=== PATIENT | female | born 1990 | race Caucasian/White ===

== ENCOUNTER 2020-10-10 08:34 | Inpatient (IN) | payer MEDICAID ==
[~2020-10-10] VITALS: Ht 160 cm; Wt 100.0 kg
[2020-10-10] MEDS ORDERED: LACTATED RINGERS 1,000 ML IVBOLUS ONE (10:30)
[2020-10-10] MEDS ORDERED: CALCIUM CARBONATE 500 MG TAB.CHEW PO PRN (10:30)
[2020-10-10] MEDS ORDERED: LACTATED RINGERS 1,000 ML IV SCH ×2 (10:30→13:30)
[2020-10-10] MEDS ORDERED: METOCLOPRAMIDE 5 MG/ML, 2ML IV ONE (10:30)
[2020-10-10 10:43] VITALS: BP 131/79
[2020-10-10 10:59] LABS: BASOPHILS % (AUTO) 0 % (0-1); EOSINOPHILS % (AUTO) 0 % (1-7); LYMPHOCYTES % (AUTO) 17 % (22-44); MEAN CORPUSCULAR HEMOGLOBIN 27.6 pg (27.0-34.8); MEAN CORPUSCULAR HGB CONC 33.3 g/dL (32.4-35.8); MEAN PLATELET VOLUME 8.3 fL (7.4-10.4); MONOCYTES % (AUTO) 7 % (2-9); NEUTROPHILS % (AUTO) 75 % (42-75); PLATELET COUNT 247 x10^3/uL (130-400); RED BLOOD COUNT 4.03 x10^6/uL (3.82-5.3); RED CELL DISTRIBUTION WIDTH 14.6 % (9.6-15.2)
[2020-10-10 11:00] LABS: MD NO
[2020-10-10] MEDS ORDERED: METOCLOPRAMIDE 5 MG/ML, 2ML ONE (11:16)
[2020-10-10] MEDS ORDERED: NEWBORN KIT ONE (11:16)
[2020-10-10] MEDS ORDERED: OXYTOCIN 30U/ 0.9% NaCL 500ML 500 ML ONE (11:16)
[2020-10-10] MEDS ORDERED: SODIUM CITRATE/CITRIC ACID 15 ML UDC ONE (11:17)
[2020-10-10] MEDS ORDERED: CEFAZOLIN 1,000 MG ONE (11:24)
[2020-10-10] MEDS ORDERED: EPHEDRINE 50 MG/ML, 1ML ONE (11:24)
[2020-10-10] MEDS ORDERED: EPINEPHRINE 1 MG/ML, 1ML ONE (11:24)
[2020-10-10] MEDS ORDERED: FENTANYL PF 100 MCG/2ML ONE (11:24)
[2020-10-10] MEDS ORDERED: OXYTOCIN 10 UNITS/ML, 1ML ONE (11:24)
[2020-10-10] MEDS ORDERED: EPHEDRINE 50 MG/ML, 1ML IVPush PRN (12:00)
[2020-10-10] MEDS ORDERED: FENTANYL PF 100 MCG/2ML IV PRN (12:00)
[2020-10-10] MEDS ORDERED: ONDANSETRON 2MG/ML, 2ML IVPush PRN (12:00)
[2020-10-10] MEDS ORDERED: morphine SULFATE 10 MG/ML, 1ML IVPush PRN (12:00)
[2020-10-10] MEDS ORDERED: OXYcodone 5 MG/5 ML ORAL.SOL UDC PO PRN (12:00)
[2020-10-10] MEDS ORDERED: MEPERIDINE/PF 25MG/0.5ML IVPush PRN (12:00)
[2020-10-10] MEDS ORDERED: KETOROLAC 30 MG/1 ML ONE (12:54)
[2020-10-10] MEDS ORDERED: ACETAMINOPHEN 325 MG TABLET PO PRN (13:30)
[2020-10-10] MEDS ORDERED: MISOPROSTOL 200 MCG TABLET PR PRN (13:30)
[2020-10-10] MEDS ORDERED: ONDANSETRON 2MG/ML, 2ML IV PRN (13:30)
[2020-10-10] MEDS: LACTATED RINGERS 1,000 ML IV SCH ×2 (13:56→23:30)
[2020-10-10] MEDS: OXYTOCIN 30U/ 0.9% NaCL 500ML 500 ML IV SCH ×2 (13:57→23:30)
[2020-10-10 15:30] VITALS: BP 129/81
[2020-10-10] MEDS: SIMETHICONE 80 MG CHEW TAB PO PRN (15:34)
[2020-10-10] MEDS: OXYcodone IR 5MG TABLET PO PRN ×2 (15:43→19:27)
[2020-10-10] MEDS: KETOROLAC 30 MG/1 ML IV SCH ×2 (19:20→19:30)
[2020-10-10] MEDS: DOCUSATE 100 MG CAPSULE PO PRN (19:27)
[2020-10-10 21:12] LABS: BASOPHILS % (AUTO) 1 % (0-1); EOSINOPHILS % (AUTO) 0 % (1-7); LYMPHOCYTES % (AUTO) 16 % (22-44); MD NO; MEAN CORPUSCULAR HEMOGLOBIN 27.3 pg (27.0-34.8); MEAN CORPUSCULAR HGB CONC 33.4 g/dL (32.4-35.8); MEAN PLATELET VOLUME 8.3 fL (7.4-10.4); MONOCYTES % (AUTO) 8 % (2-9); NEUTROPHILS % (AUTO) 76 % (42-75); PLATELET COUNT 208 x10^3/uL (130-400); RED BLOOD COUNT 3.57 x10^6/uL (3.82-5.3); RED CELL DISTRIBUTION WIDTH 14.4 % (9.6-15.2)
[2020-10-10] MEDS ORDERED: RHOGAM FROM BLOOD BANK 1 NOTE EA IM/IV ONE (22:30)
[2020-10-11] VITALS: BP 122/79
[2020-10-11] MEDS: KETOROLAC 30 MG/1 ML IV SCH ×4 (01:04→19:35)
[2020-10-11] MEDS: OXYcodone IR 5MG TABLET PO PRN ×2 (01:06→06:12)
[2020-10-11 04:00] VITALS: BP 135/85
[2020-10-11 07:05] VITALS: BP 119/83
[2020-10-11] MEDS: PRENATAL VIT/IRON/FA 1 EACH TABLET PO SCH (07:05)
[2020-10-11] MEDS: DOCUSATE 100 MG CAPSULE PO PRN ×2 (07:05→19:36)
[2020-10-11] MEDS: OXYTOCIN 30U/ 0.9% NaCL 500ML 500 ML IV SCH ×2 (09:30→19:30)
[2020-10-11] MEDS: LACTATED RINGERS 1,000 ML IV SCH ×2 (09:30→19:30)
[2020-10-11] MEDS: OXYcodone/APAP 5/325MG TABLET PO PRN ×3 (10:10→19:59)
[2020-10-11 11:11] VITALS: BP 119/79
[2020-10-11 19:40] VITALS: BP 112/77
[2020-10-12] MEDS: OXYcodone/APAP 5/325MG TABLET PO PRN ×4 (00:01→19:16)
[2020-10-12] MEDS: KETOROLAC 30 MG/1 ML IV SCH ×2 (01:40→07:41)
[2020-10-12] MEDS: OXYTOCIN 30U/ 0.9% NaCL 500ML 500 ML IV SCH ×2 (05:30→15:30)
[2020-10-12] MEDS: LACTATED RINGERS 1,000 ML IV SCH ×2 (05:30→15:30)
[2020-10-12 07:05] VITALS: BP 124/88
[2020-10-12] MEDS: PRENATAL VIT/IRON/FA 1 EACH TABLET PO SCH (07:41)
[2020-10-12] MEDS: DOCUSATE 100 MG CAPSULE PO PRN ×2 (07:41→19:17)
[2020-10-12] MEDS: IBUPROFEN 600 MG TABLET PO PRN ×2 (13:28→19:16)
[2020-10-12 19:27] VITALS: BP 130/81
[2020-10-13] MEDS: LACTATED RINGERS 1,000 ML IV SCH ×2 (01:30→11:30)
[2020-10-13] MEDS: OXYTOCIN 30U/ 0.9% NaCL 500ML 500 ML IV SCH ×2 (01:30→11:30)
[2020-10-13] MEDS: OXYcodone/APAP 5/325MG TABLET PO PRN ×4 (03:46→17:26)
[2020-10-13] MEDS: IBUPROFEN 600 MG TABLET PO PRN ×2 (03:46→17:26)
[2020-10-13 07:37] VITALS: BP 138/90
[2020-10-13] MEDS: DOCUSATE 100 MG CAPSULE PO PRN (07:51)
[2020-10-13] MEDS: SIMETHICONE 80 MG CHEW TAB PO PRN (07:51)
[2020-10-13] MEDS: PRENATAL VIT/IRON/FA 1 EACH TABLET PO SCH (07:51)
[2020-10-13] MEDS ORDERED: OXYC1TAB14 PO (13:16)
[2020-10-13] MEDS ORDERED: IBUP-1222 PO (13:16)
== END 2020-10-13 19:37 | disposition home or self-care (01) | DRG 785 ==
LOC: LDIP 10:13 → 2NW 15:05
PROVIDERS: ADMIT Obstetrics & Gynecology; ATTEND Obstetrics & Gynecology
PROC: 0UB70ZZ Excision of Bilateral Fallopian Tubes, Open Approach (ICD-10-PCS; principal; 2020-10-10)
PROC: 10D00Z1 Extraction of Products of Conception, Low, Open Approach (ICD-10-PCS; 2020-10-10)
DX: O34.211 Maternal care for low transverse scar from previous cesarean delivery (principal); Z30.2 Encounter for sterilization; Z37.0 Single live birth; Z3A.39 39 weeks gestation of pregnancy; Z82.3 Family history of stroke; Z82.49 Family history of ischemic heart disease and other diseases of the circulatory system; Z83.3 Family history of diabetes mellitus; Z90.721 Acquired absence of ovaries, unilateral
CPT/HCPCS: 36415; 85025; 85461; 86592; 86850; 86900; 88302; G0378; J0171; J0690; J1885; J2405; J2790; J3010; J2590; J2765; J7120